=== PATIENT | female | born 1950 | race Caucasian/White ===

== ENCOUNTER 2017-04-07 13:23 | Observation (INO) | payer MEDICARE, OTHER ==
[2017-04-07 14:15] LABS: ALT (SGPT) 23 U/L (8-55); AST (SGOT) 23 U/L (5-34); Alkaline Phosphatase 65 U/L (40-150); Anion Gap 16 mmol/L (10-20); BUN (Urea Nitrogen) 47 mg/dL (9.8-20.1); Bilirubin, Total 0.4 mg/dL (0.2-1.2); Calc. Creatinine Clearance 0 mL/min (70-130); Calcium 9.7 mg/dL (7.8-10.44); Carbon Dioxide 20 mmol/L (23-31); Chloride 99 mmol/L (98-107); Estimated GFR-MDRD 24; Globulin 2.9 g/dL (2.4-3.5); Glucose 146 mg/dL (80-115); Protein, Total 6.9 g/dL (6.0-8.3); Sodium 131 mmol/L (136-145)
[2017-04-07 14:25] LABS: Hemoglobin 12.8 g/dL (12.0-16.0); Mean Corpuscular HGB CONC 33.2 g/dL (32.0-36.0); Mean Corpuscular Hemoglobin 30.9 pg (27.0-31.0); Mean Corpuscular Volume 93.2 fl (81.0-99.0); Mean Platelet Volume 6.8 fL (7.4-10.4); Platelet Count 285 thou/uL (130-400); RBC Distribution Width 11.3 % (11.5-14.5); Red Blood Cell (RBC) Count 4.15 mill/uL (4.20-5.40); White Blood Cell (WBC) Count 9.3 thou/uL (4.8-10.8)
[2017-04-07 14:37] LABS: Band 1 % (5-11); Lymphocytes 12 % (21-51); MDiff Complete? YES; Monocytes 1 % (0-10); Neutrophil 84 % (42-75); PLT Morphology Comment Appears Adequate; RBC Morphology Normal; Reactive Lymphocytes 2 % (0-10)
[2017-04-07 14:51] LABS: Bilirubin Negative (Negative); Blood, Urine Trace (Negative); Clarity Slightly Cloudy (Clear); Glucose, Urine (Dipstick) Negative (Negative); Leukocyte Trace (Negative); Nitrite Negative (Negative); Protein, Urine (Dipstick) Negative (Neg-Trace); Urobilinogen 0.2 mg/dL (0.2-1.0); pH, Urine 6.5 (5.0-9.0)
[2017-04-07 14:57] LABS: Bacteria/HPF Rare-Few HPF (None Seen); RBC/HPF 0-3 HPF (0-3); WBC/HPF 0-3 HPF (0-3)
[2017-04-07] MEDS ORDERED: Sodium Chloride 0.9% 1,000 ML ONE (15:02)
[2017-04-07] MEDS ORDERED: Acetaminophen 325 MG TAB ONE (15:30)
[2017-04-07 17:02] VITALS: BMI 25.3
[2017-04-07] MEDS ORDERED: Sodium Chloride 0.9% 1,000 ML IV SCH (17:15)
[2017-04-07] MEDS: Sodium Chloride 0.9% 1,000 ML IV SCH (18:54)
[2017-04-07] MEDS ORDERED: diphenhydrAMINE HCl 25 MG CAP PO PRN (22:24)
[2017-04-08] MEDS: Sodium Chloride 0.9% 1,000 ML IV SCH ×2 (01:30→10:23)
[2017-04-08 06:05] LABS: Anion Gap 11 mmol/L (10-20); Troponin I Less than 0.010 ng/mL (< 0.028)
[2017-04-08 06:43] LABS: Calc. Creatinine Clearance 54 mL/min (70-130); Estimated GFR-MDRD 53
[2017-04-08 06:44] LABS: BUN (Urea Nitrogen) 25 mg/dL (9.8-20.1); Calcium 8.5 mg/dL (7.8-10.44); Carbon Dioxide 22 mmol/L (23-31); Chloride 113 mmol/L (98-107); Glucose 97 mg/dL (80-115); Potassium 4.6 mmol/L (3.5-5.1); Sodium 141 mmol/L (136-145)
[2017-04-08] MEDS ORDERED: Fluticasone Propionate Nasal Spray 16 gm Bottle NASAL SCH (09:00)
[2017-04-08] MEDS ORDERED: PARoxetine 20 MG TAB PO SCH (09:00)
[2017-04-08] MEDS ORDERED: Lisinopril 10 MG TAB PO SCH (09:00)
[2017-04-08 10:08] VITALS: BP 113/55; TEMP 97.7
== END 2017-04-08 12:00 | disposition home or self-care (01) ==
LOC: NAV ERS 13:23 → NAV ACUTE 16:40
PROVIDERS: ADMIT Internal Medicine; ATTEND Internal Medicine
DX: E86.0 Dehydration (principal); N17.9 Acute kidney failure, unspecified; R55 Syncope and collapse; I10 Essential (primary) hypertension; E03.9 Hypothyroidism, unspecified; Z79.899 Other long term (current) drug therapy; Z79.82 Long term (current) use of aspirin; Z79.02 Long term (current) use of antithrombotics/antiplatelets
CPT/HCPCS: 36416; 80048; 80053; 81003; 81015; 84484; 85025; 93005; 96360; 96361; G0378; J7050

== ENCOUNTER 2022-02-12 10:44 | Emergency (ER) | payer OTHER, MEDICARE ==
[2022-02-12 11:31] LABS: Clarity Clear (Clear); Glucose, Urine (Dipstick) Negative (Negative); Leukocyte Negative (Negative); Nitrite Negative (Negative); Protein, Urine (Dipstick) Negative (Neg-Trace); Specific Gravity, Urine 1.015 (1.005-1.030)
[2022-02-12 11:32] LABS: Bilirubin Negative (Negative); Blood, Urine Negative (Negative); Ketone, Urine 15 mg/dL (Negative)
[2022-02-12 11:48] LABS: #Basophils 0.2 thou/uL (0.0-0.2); #Lymphocytes 0.7 thou/uL (1.20-3.40); #Monocytes 1.2 thou/uL (0.11-0.59); #Neutrophils 8.6 thou/uL (1.40-6.50); %Basophils 1.5 % (0.0-1.0); %Eosinophils 0.3 % (0.0-10.0); %Lymphocytes 6.2 % (21.0-51.0); %Monocytes 11.4 % (0.0-10.0); %Neutrophils 80.6 % (42.0-75.0); Hemoglobin 12.6 g/dL (12.0-16.0); Mean Corpuscular HGB CONC 32.5 g/dL (32.0-36.0); Mean Corpuscular Hemoglobin 32.4 pg (27.0-31.0); Mean Corpuscular Volume 99.6 fL (78.0-98.0); Mean Platelet Volume 7.1 fL (7.4-10.4); Platelet Count 296 thou/uL (130-400); RBC Distribution Width 10.8 % (11.5-14.5); Red Blood Cell (RBC) Count 3.87 mill/uL (4.20-5.40); White Blood Cell (WBC) Count 10.6 thou/uL (4.8-10.8)
[2022-02-12 12:02] LABS: ALT (SGPT) 23 U/L (8-55); AST (SGOT) 20 U/L (5-34); Albumin 3.9 g/dL (3.4-4.8); Alcohol Less than 10 mg/dL (Less than 10); Alkaline Phosphatase 86 U/L (40-110); Anion Gap 17 mmol/L (10-20); BUN (Urea Nitrogen) 19 mg/dL (9.8-20.1); Bilirubin, Total 0.7 mg/dL (0.2-1.2); Calc. Creatinine Clearance 0 mL/min (70-130); Calcium 9.7 mg/dL (7.8-10.44); Carbon Dioxide 23 mmol/L (23-31); Chloride 91 mmol/L (98-107); Globulin 2.6 g/dL (2.4-3.5); Glucose 96 mg/dL (83-110); Potassium 4.3 mmol/L (3.5-5.1); Protein, Total 6.5 g/dL (5.8-8.1); Sodium 127 mmol/L (136-145)
[2022-02-12 12:03] LABS: Prothrombin Time 13.2 sec (12.0-14.7)
[2022-02-12 12:04] LABS: PTT 29.4 sec (22.9-36.1)
[2022-02-12] MEDS ORDERED: Lidocaine 1% 20 ML MDV ONE (12:11)
[2022-02-12] MEDS ORDERED: Bacitracin 1 PK ONE (12:24)
== END 2022-02-12 12:35 | disposition home or self-care (01) ==
LOC: NAV ERS 10:44
DX: S01.81XA Laceration without foreign body of other part of head, initial encounter (principal); S50.11XA Contusion of right forearm, initial encounter; S40.022A Contusion of left upper arm, initial encounter; S40.021A Contusion of right upper arm, initial encounter; R00.1 Bradycardia, unspecified; I10 Essential (primary) hypertension; E03.9 Hypothyroidism, unspecified; W01.198A Fall on same level from slipping, tripping and stumbling with subsequent striking against other object, initial encounter
CPT/HCPCS: 12011; 36415; 70450; 72125; 80053; 80307; 81003; 85025; 85610; 85730; 93005

== ENCOUNTER 2022-02-23 12:17 | Emergency (ER) | payer MEDICARE ==
[2022-02-23] MEDS ORDERED: Bacitracin 1 PK ONE (12:46)
== END 2022-02-23 13:04 | disposition home or self-care (01) ==
LOC: NAV ERS 12:17
DX: S01.81XD Laceration without foreign body of other part of head, subsequent encounter (principal); E03.9 Hypothyroidism, unspecified; I10 Essential (primary) hypertension; W19.XXXD Unspecified fall, subsequent encounter

== ENCOUNTER 2022-04-27 18:50 | Emergency (ER) | payer MEDICARE ==
[2022-04-27] MEDS ORDERED: Sodium Chloride 0.9% 500 ML ONE (19:19)
[2022-04-27 19:34] LABS: #Basophils 0.2 thou/uL (0.0-0.2); #Eosinphils 0.2 thou/uL (0.0-0.7); #Lymphocytes 0.4 thou/uL (1.20-3.40); #Monocytes 1.2 thou/uL (0.11-0.59); #Neutrophils 5.8 thou/uL (1.40-6.50); %Lymphocytes 5.5 % (21.0-51.0); %Monocytes 15.2 % (0.0-10.0); %Neutrophils 75.4 % (42.0-75.0); Hemoglobin 13.9 g/dL (12.0-16.0); Mean Corpuscular HGB CONC 32.2 g/dL (32.0-36.0); Mean Corpuscular Hemoglobin 31.6 pg (27.0-31.0); Mean Corpuscular Volume 98.2 fL (78.0-98.0); Mean Platelet Volume 7.3 fL (7.4-10.4); Platelet Count 265 thou/uL (130-400); RBC Distribution Width 11.9 % (11.5-14.5); Red Blood Cell (RBC) Count 4.38 mill/uL (4.20-5.40); White Blood Cell (WBC) Count 7.7 thou/uL (4.8-10.8)
[2022-04-27 19:47] LABS: ALT (SGPT) 25 U/L (8-55); AST (SGOT) 19 U/L (5-34); Albumin 3.8 g/dL (3.4-4.8); Alkaline Phosphatase 100 U/L (40-110); Anion Gap 18 mmol/L (10-20); BUN (Urea Nitrogen) 29 mg/dL (9.8-20.1); Bilirubin, Total 0.5 mg/dL (0.2-1.2); Calc. Creatinine Clearance 0 mL/min (70-130); Calcium 9.7 mg/dL (7.8-10.44); Carbon Dioxide 20 mmol/L (23-31); Chloride 96 mmol/L (98-107); Estimated GFR 42; Glucose 108 mg/dL (83-110); Potassium 4.3 mmol/L (3.5-5.1); Protein, Total 6.8 g/dL (5.8-8.1); Sodium 130 mmol/L (136-145)
[2022-04-27 21:28] LABS: SARS-CoV-2 NAA Rapid Test Not Detected (NotDetected)
== END 2022-04-27 22:07 | disposition short-term general hospital (02) ==
LOC: NAV ERS 18:50
DX: R00.1 Bradycardia, unspecified (principal); E03.9 Hypothyroidism, unspecified; I10 Essential (primary) hypertension; Z79.899 Other long term (current) drug therapy
CPT/HCPCS: 71045; 80053; 83880; 84484; 85025; 93005; 94760; 99285; U0002; J7030

== ENCOUNTER 2022-06-14 17:45 | Emergency (ER) | payer MEDICARE ==
[2022-06-14 18:40] LABS: #Basophils 0.1 thou/uL (0.0-0.2); #Lymphocytes 0.3 thou/uL (1.20-3.40); #Monocytes 0.9 thou/uL (0.11-0.59); #Neutrophils 9.2 thou/uL (1.40-6.50); %Lymphocytes 2.8 % (21.0-51.0); %Monocytes 8.3 % (0.0-10.0); %Neutrophils 87.9 % (42.0-75.0); Hemoglobin 13.1 g/dL (12.0-16.0); Mean Corpuscular HGB CONC 32.7 g/dL (32.0-36.0); Mean Corpuscular Volume 97.9 fL (78.0-98.0); Mean Platelet Volume 7.8 fL (7.4-10.4); Platelet Count 247 thou/uL (130-400); RBC Distribution Width 11.8 % (11.5-14.5); Red Blood Cell (RBC) Count 4.08 mill/uL (4.20-5.40); White Blood Cell (WBC) Count 10.5 thou/uL (4.8-10.8)
[2022-06-14 18:49] LABS: ALT (SGPT) 33 U/L (8-55); AST (SGOT) 20 U/L (5-34); Albumin 3.8 g/dL (3.4-4.8); Alkaline Phosphatase 81 U/L (40-110); Anion Gap 20 mmol/L (10-20); BUN (Urea Nitrogen) 53 mg/dL (9.8-20.1); Bilirubin, Total 0.4 mg/dL (0.2-1.2); Calc. Creatinine Clearance 0 mL/min (70-130); Calcium 9.9 mg/dL (7.8-10.44); Carbon Dioxide 18 mmol/L (23-31); Chloride 99 mmol/L (98-107); Estimated GFR 21; Globulin 2.7 g/dL (2.4-3.5); Glucose 167 mg/dL (83-110); Lipase 76 U/L (8-78); Protein, Total 6.5 g/dL (5.8-8.1); Sodium 133 mmol/L (136-145)
[2022-06-14] MEDS ORDERED: Ondansetron PF 4 MG/2 ML Vial ONE (19:09)
[2022-06-14] MEDS ORDERED: Sodium Chloride 0.9% 1,000 ML ONE ×2 (19:09→20:26)
[2022-06-14] MEDS ORDERED: Sodium Chloride 0.9% 250 ML 500 ML ONE (19:25)
[2022-06-14] MEDS ORDERED: Sodium Chloride 0.9% 100 ML ONE (19:25)
[2022-06-14] MEDS ORDERED: Cefepime 2 GM VIAL ONE (19:25)
[2022-06-14] MEDS ORDERED: Vancomycin HCl 750 MG VIAL ONE (19:25)
[2022-06-14 21:23] LABS: Lactic Acid 1.7 mmol/L (0.5-2.2)
[2022-06-14 22:37] LABS: Bilirubin Negative (Negative); Blood, Urine Trace (Negative); Clarity Clear (Clear); Glucose, Urine (Dipstick) Negative (Negative); Ketone, Urine Negative (Negative); Leukocyte Small (Negative); Nitrite Positive (Negative); Protein, Urine (Dipstick) Negative (Neg-Trace); Specific Gravity, Urine 1.015 (1.005-1.030); Urobilinogen 0.2 mg/dL (Less than 2)
[2022-06-14 22:44] LABS: Bacteria/HPF 2+ HPF (None Seen); Squamous Epithelial 0-3 HPF (0-3)
[2022-06-14 23:03] LABS: SARS-CoV-2 NAA Rapid Test Not Detected (NotDetected)
== END 2022-06-15 00:50 | disposition short-term general hospital (02) ==
LOC: NAV ERS 17:45
DX: A41.9 Sepsis, unspecified organism (principal); E86.0 Dehydration; N30.00 Acute cystitis without hematuria; R91.1 Solitary pulmonary nodule; E78.00 Pure hypercholesterolemia, unspecified; E03.9 Hypothyroidism, unspecified; I10 Essential (primary) hypertension; Z87.891 Personal history of nicotine dependence; Z20.822 Contact with and (suspected) exposure to COVID-19
CPT/HCPCS: 71045; 80053; 83605; 83690; 84484; 85025; 87040; 93005; U0002; 81003; 81015; 96365; 96366; 96367; 96375; J0692; J2405; J3370; J3490; J7050

== ENCOUNTER 2022-07-21 10:21 | Outpatient (CLI) | payer MEDICARE | END 2022-07-21 10:22 | disposition home or self-care (01) | LOC: NAV RAD 10:21 | PROVIDERS: ATTEND Nurse Practitioner | DX: R91.8 Other nonspecific abnormal finding of lung field (principal) | CPT/HCPCS: 71046 ==

== ENCOUNTER 2022-08-06 08:30 | Outpatient (CLI) | payer MEDICARE ==
[2022-08-06] MEDS ORDERED: Iopamidol 370 76% 100 ML VIAL ONE (09:00)
[2022-08-06 09:01] LABS: Follow-up Chemistry Comp? YES; Follow-up Result - Chemistry REPORT FAXED
== END 2022-08-06 08:31 | disposition home or self-care (01) ==
LOC: NAV CT 08:30
PROVIDERS: ATTEND Nurse Practitioner
DX: R91.8 Other nonspecific abnormal finding of lung field (principal); S22.43XA Multiple fractures of ribs, bilateral, initial encounter for closed fracture; K76.89 Other specified diseases of liver
CPT/HCPCS: 36415; 71260; 82565

== ENCOUNTER 2022-10-23 16:09 | Emergency (ER) | payer OTHER, MEDICARE ==
[2022-10-23] MEDS ORDERED: Fentanyl 100 MCG/2 ML VIAL ONE ×2 (16:57→17:36)
[2022-10-23] MEDS ORDERED: Lidocaine 1% (PF) 30 ML VIAL ONE (17:34)
== END 2022-10-23 18:40 | disposition home or self-care (01) ==
LOC: NAV ERS 16:09
DX: S52.532A Colles' fracture of left radius, initial encounter for closed fracture (principal); E78.00 Pure hypercholesterolemia, unspecified; I10 Essential (primary) hypertension; E03.9 Hypothyroidism, unspecified; Z87.891 Personal history of nicotine dependence; Z79.899 Other long term (current) drug therapy; Z79.82 Long term (current) use of aspirin; W01.0XXA Fall on same level from slipping, tripping and stumbling without subsequent striking against object, initial encounter
CPT/HCPCS: 25605; 96374; 96376; J2001; J3010

== ENCOUNTER 2023-10-06 15:39 | Emergency (ER) | payer MEDICARE, OTHER ==
[2023-10-06] MEDS ORDERED: Ibuprofen 200 MG TAB ONE (16:05)
== END 2023-10-06 16:55 | disposition home or self-care (01) ==
LOC: NAV ERS 15:39
DX: B34.9 Viral infection, unspecified (principal); E78.00 Pure hypercholesterolemia, unspecified; I10 Essential (primary) hypertension; E03.9 Hypothyroidism, unspecified; Z87.891 Personal history of nicotine dependence; Z79.82 Long term (current) use of aspirin; Z79.899 Other long term (current) drug therapy; Z79.890 Hormone replacement therapy
CPT/HCPCS: 87081; 87430; 87804; 99284

== ENCOUNTER 2024-08-20 10:32 | Emergency (ER) | payer MEDICARE, OTHER ==
[~2024-08-20 10:32] MED LIST: Iopamidol 370 76% 100 ML VIAL ONE
[2024-08-20 11:19] LABS: Bilirubin Moderate (Negative); Blood, Urine Small (Negative); Clarity Clear (Clear); Glucose, Urine (Dipstick) Negative (Negative); Ketone, Urine > or equal to 80 mg/dL (Negative); Leukocyte Small (Negative); Nitrite Negative (Negative); Protein, Urine (Dipstick) 100 mg/dL (Neg-Trace); Specific Gravity, Urine 1.015 (1.005-1.030)
[2024-08-20 11:25] LABS: CAUTI Indications for Culture Dysuria,urgency,freq; RBC/HPF 0-3 HPF (0-3); Urine Culture Reflex No No
[2024-08-20] MEDS ORDERED: Ondansetron PF 4 MG/2 ML Vial ONE ×2 (11:38→14:08)
[2024-08-20 11:45] LABS: ALT (SGPT) 22 U/L (8-55); AST (SGOT) 20 U/L (5-34); Albumin 3.3 g/dL (3.4-4.8); Alkaline Phosphatase 80 U/L (40-110); Anion Gap 16 mmol/L (10-20); BUN (Urea Nitrogen) 15 mg/dL (9.8-20.1); Bilirubin, Total 0.7 mg/dL (0.2-1.2); Calc. Creatinine Clearance 0 mL/min (70-130); Calcium 9.1 mg/dL (7.8-10.44); Carbon Dioxide 20 mmol/L (23-31); Chloride 103 mmol/L (98-107); Estimated GFR 42; Globulin 2.8 g/dL (2.4-3.5); Glucose 113 mg/dL (83-110); Magnesium 1.1 mg/dL (1.6-2.6); Potassium 3.7 mmol/L (3.5-5.1); Protein, Total 6.1 g/dL (5.8-8.1); Sodium 135 mmol/L (136-145)
[2024-08-20 11:46] LABS: Hematocrit 38.6 % (36.0-47.0); Hemoglobin 12.8 g/dL (12.0-16.0); Manual Diff?? YES; Mean Corpuscular HGB CONC 33.2 g/dL (32.0-36.0); Mean Corpuscular Hemoglobin 32.1 pg (27.0-31.0); Mean Corpuscular Volume 96.7 fl (78.0-98.0); Mean Platelet Volume 7.2 fL (7.4-10.4); Platelet Count 140 10x3/uL (130-400); RBC Distribution Width 11.6 % (11.5-14.5); Red Blood Cell (RBC) Count 3.99 mill/uL (4.20-5.40); White Blood Cell (WBC) Count 8.6 10x3/uL (4.8-10.8)
[2024-08-20 11:47] LABS: Band 19 % (5-11); Lymphocytes 1 % (21-51); MDiff Complete? YES; Monocytes 1 % (0-10); Neutrophil 79 % (42-75)
[2024-08-20] MEDS ORDERED: Sodium Chloride 0.9% 1,000 ML ONE (12:12)
[2024-08-20] MEDS ORDERED: Sodium Chloride 0.9% 100 ML ONE (13:57)
[2024-08-20] MEDS ORDERED: cefTRIAXone (ROCEPHIN) 1 GM VIAL ONE (13:57)
[2024-08-20] MEDS ORDERED: Acetaminophen 500 MG TAB ONE (13:57)
== END 2024-08-20 15:53 | disposition short-term general hospital (02) ==
LOC: NAV ERS 10:32
DX: A41.9 Sepsis, unspecified organism (principal); R65.20 Severe sepsis without septic shock; N39.0 Urinary tract infection, site not specified; N17.9 Acute kidney failure, unspecified; I10 Essential (primary) hypertension; Z87.891 Personal history of nicotine dependence
CPT/HCPCS: 74177; 80053; 81001; 83605; 83735; 85025; 87040; 87077; 87086; 87186; 94760; 96361; 96365; 96375; 96376; 99285; J0696; J2405; J7030; Q9967; 36415

== ENCOUNTER 2024-10-22 07:41 | Emergency (ER) | payer MEDICARE, OTHER ==
[2024-10-22] MEDS ORDERED: Ondansetron PF 4 MG/2 ML Vial ONE (08:32)
[2024-10-22] MEDS ORDERED: Iopamidol 370 76% 100 ML VIAL ONE (09:00)
[2024-10-22 09:08] LABS: Hematocrit 39.7 % (36.0-47.0); Mean Corpuscular Volume 96.2 fl (78.0-98.0); Red Blood Cell (RBC) Count 4.13 mill/uL (4.20-5.40)
[2024-10-22 09:09] LABS: %Basophils 0.6 % (0.0-1.0); %Lymphocytes 1.1 % (21.0-51.0); %Monocytes 1.2 % (0.0-10.0); %Neutrophils 92.1 % (42.0-75.0); Manual Diff?? NO; Mean Corpuscular HGB CONC 32.7 g/dL (32.0-36.0); Mean Corpuscular Hemoglobin 31.5 pg (27.0-31.0); Mean Platelet Volume 8.7 fL (7.4-10.4); Platelet Count 249 10x3/uL (130-400); RBC Distribution Width 11.7 % (11.5-14.5)
[2024-10-22 09:10] LABS: #Basophils 0.1 thou/uL (0.0-0.2); #Eosinophils 0.5 thou/uL (0.0-0.7); #Lymphocytes 0.2 thou/uL (1.20-3.40); #Monocytes 0.5 thou/uL (0.11-0.59); #Neutrophils 14.8 thou/uL (1.40-6.50)
[2024-10-22 09:49] LABS: ALT (SGPT) 12 U/L (Less than 34); AST (SGOT) 23 U/L (11-34); Albumin 3.1 g/dL (3.1-4.5); Alkaline Phosphatase 74 U/L (40-110); Anion Gap 16 mmol/L (10-20); BUN (Urea Nitrogen) 20 mg/dL (9.8-20.1); Bilirubin, Total 1.1 mg/dL (0.3-1.2); Calc. Creatinine Clearance 0 mL/min (70-130); Calcium 9.8 mg/dL (7.8-10.44); Carbon Dioxide 18 mmol/L (23-31); Chloride 102 mmol/L (98-107); Estimated GFR 41; Globulin 3.4 g/dL (2.4-3.5); Glucose 152 mg/dL (83-110); Potassium 3.9 mmol/L (3.5-5.1); Protein, Total 6.5 g/dL (5.8-8.1); Sodium 132 mmol/L (136-145)
[2024-10-22] MEDS ORDERED: Sodium Chloride 0.9% 1,000 ML ONE (10:38)
[2024-10-22] MEDS ORDERED: Sulfameth/Trimethoprim DS 800-160mg TAB ONE (12:03)
[2024-10-22 12:45] LABS: Bilirubin Negative (Negative); Blood, Urine Trace (Negative); CAUTI Indications for Culture Dysuria,urgency,freq; Clarity Clear (Clear); Glucose, Urine (Dipstick) Negative (Negative); Ketone, Urine Negative (Negative); Leukocyte Negative (Negative); Nitrite Negative (Negative); Protein, Urine (Dipstick) 30 mg/dL (Neg-Trace); RBC/HPF 0-3 HPF (0-3); Squamous Epithelial 0-3 HPF (0-3); Urobilinogen 0.2 mg/dL (Less than 2); WBC/HPF 0-3 HPF (0-3)
[2024-10-22 12:48] LABS: Specific Gravity, Urine 1.036 (1.002-1.036); Urine Culture Reflex No No
== END 2024-10-22 12:33 | disposition home or self-care (01) ==
LOC: NAV ERS 07:41
DX: N39.0 Urinary tract infection, site not specified (principal); I10 Essential (primary) hypertension; Z87.891 Personal history of nicotine dependence
CPT/HCPCS: 36415; 74177; 80053; 81001; 83605; 85025; 96361; 96374; J2405; J7030; Q9967

== ENCOUNTER 2025-08-12 10:37 | Emergency (ER) | payer MEDICARE, OTHER ==
[2025-08-12 11:29] LABS: #Basophils 0.1 thou/uL (0.0-0.2); #Eosinophils 0.3 thou/uL (0.0-0.7); #Lymphocytes 0.8 thou/uL (1.20-3.40); #Monocytes 0.5 thou/uL (0.11-0.59); #Neutrophils 4.7 thou/uL (1.40-6.50); %Basophils 1.8 % (0.0-1.0); %Eosinophils 4.3 % (0.0-10.0); %Lymphocytes 12.1 % (21.0-51.0); %Monocytes 7.8 % (0.0-10.0); %Neutrophils 74.0 % (42.0-75.0); Hematocrit 30.4 % (36.0-47.0); Hemoglobin 9.8 g/dL (12.0-16.0); Mean Corpuscular Hemoglobin 30.0 pg (27.0-31.0); Mean Corpuscular Volume 92.4 fl (78.0-98.0); Platelet Count 310 10x3/uL (130-400); Red Blood Cell (RBC) Count 3.28 mill/uL (4.20-5.40); White Blood Cell (WBC) Count 6.4 10x3/uL (4.8-10.8)
[2025-08-12] MEDS ORDERED: Metoprolol Tartrate 5 MG (5 mL) VIAL ONE (11:35)
[2025-08-12 11:42] LABS: ALT (SGPT) 16 U/L (Less than 34); AST (SGOT) 30 U/L (11-34); Albumin 3.8 g/dL (3.1-4.5); Alkaline Phosphatase 91 U/L (40-110); Anion Gap 17 mmol/L (10-20); BUN (Urea Nitrogen) 11 mg/dL (9.8-20.1); Bilirubin, Total 0.4 mg/dL (0.3-1.2); Calc. Creatinine Clearance 0 mL/min (70-130); Calcium 9.4 mg/dL (7.8-10.44); Carbon Dioxide 22 mmol/L (23-31); Chloride 107 mmol/L (98-107); Globulin 2.9 g/dL (2.4-3.5); Glucose 101 mg/dL (83-110); Potassium 3.9 mmol/L (3.5-5.1); Sodium 142 mmol/L (136-145)
[2025-08-12 11:43] LABS: Troponin I 0.025 ng/mL (< 0.028)
== END 2025-08-12 12:45 | disposition home or self-care (01) ==
LOC: NAV ERS 10:37
DX: I10 Essential (primary) hypertension (principal); R00.0 Tachycardia, unspecified; Z87.891 Personal history of nicotine dependence; Z79.82 Long term (current) use of aspirin
CPT/HCPCS: 80053; 84484; 85025; 93005; J7030

== ENCOUNTER 2025-08-16 12:05 | Emergency (ER) | payer MEDICARE, OTHER | END 2025-08-16 13:56 | disposition home or self-care (01) | LOC: NAV ERS 12:05 | DX: I99.8 Other disorder of circulatory system (principal); R42 Dizziness and giddiness; I10 Essential (primary) hypertension; E78.00 Pure hypercholesterolemia, unspecified; E03.9 Hypothyroidism, unspecified; Z79.890 Hormone replacement therapy; Z87.891 Personal history of nicotine dependence; Z79.899 Other long term (current) drug therapy | CPT/HCPCS: 99283 ==